=== PATIENT | male | born 1985 | race Two or more races ===

== ENCOUNTER 2018-04-08 12:18 | Emergency (ER) | payer SELFPAY ==
[~2018-04-08] VITALS: Ht 185.4 cm; Wt 95.8 kg
--- NOTE | 2018-04-08 12:30 | NUR ---
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 PT STS PAIN 09/05 ANDRY WELL. DENIES SOB, N/V, ARM/JAW PAIN @ THIS TIME. ON MONITOR, NSR. PT SEEN & EVAL'D BY DR. BUCHANAN. WILL CONT TO MONITOR.
[2018-04-08 12:31] LABS: HEMATOCRIT 44 % (39-51); HEMOGLOBIN 14.9 g/dL (13.5-17.5); MEAN CORPUSCULAR HEMOGLOBIN 29 PG (26.0-33.0); MEAN CORPUSCULAR HGB CONC 34 g/dl (31.0-36.0); MEAN CORPUSCULAR VOLUME 85 fL (80-96); PLATELET COUNT (AUTO) 261 /CMM (150-450); RDW COEFFICIENT OF VARIATION 11.7 (11.5-15.0); RED BLOOD CELL COUNT(AUTO) 5.16 MIL/uL (4.5-6.0); WHITE BLOOD COUNT (AUTO) 7.9 K/uL (4.3-11.0)
[2018-04-08 12:36] LABS: BASOPHILS % (AUTO) 0.5 % (0.0-2.0); EOSINOPHILS % (AUTO) 2.2 % (0.0-6.0); LYMPHOCYTES # (AUTO) 3.9 /CMM (0.8-4.8); LYMPHOCYTES % (AUTO) 46.7 % (20.0-44.0); MONOCYTES % (AUTO) 7.7 % (2.0-12.0); NEUTROPHILS # (AUTO) 3.6 /CMM (1.8-8.9); NEUTROPHILS % (AUTO) 42.9 % (43.0-81.0)
[2018-04-08 12:37] LABS: MONOCYTES # (AUTO) 0.6 /CMM (0.1-1.30)
[2018-04-08 12:39] LABS: CALCIUM, SERUM 8.5 mg/dL (8.5-10.1); CARBON DIOXIDE 21 mmol/L (21-32); CHLORIDE 106 mmol/L (98-107); CREATININE 0.7 mg/dL (0.6-1.3); GLUCOSE 125 mg/dL (74-106); POTASSIUM 3.7 mmol/L (3.5-5.1); SODIUM SERUM 139 mmol/L (136-145); UREA NITROGEN, BLOOD 9 mg/dL (7-18)
[2018-04-08 12:44] LABS: INR 0.91 (0.85-1.15)
[2018-04-08 12:48] LABS: TROPONIN I < 0.017 ng/mL (0.00-0.056)
[2018-04-08 13:19] VITALS: BP 131/78
--- NOTE | 2018-04-08 13:27 | NUR ---
IV removed. Catheter intact and site benign. Pressure and 4x4 applied to site. No bleeding noted.
--- NOTE | 2018-04-08 13:28 | NUR ---
PT. VERBALIZED UNDERSTANDING OF AFTERCARE INSTRUCTIONS.Patient discharged to home in stable condition. Written and verbal after care instructions given. Patient verbalizes understanding of instruction.
== END 2018-04-08 13:32 | disposition home or self-care (01) ==
LOC: ER 12:20
DX: R07.89 Other chest pain (principal)
CPT/HCPCS: 36415; 71045; 80048; 84484; 85025; 85730; 93005; 99285; A4606; Z7610